=== PATIENT | female | born 1965 | race Two or more races ===

== ENCOUNTER 2017-08-10 11:48 | Emergency (ER) | payer OTHER ==
[~2017-08-10] VITALS: Ht 157.5 cm; Wt 81.6 kg
[2017-08-10 12:11] LABS: BASO % 1 % (0-3); EOS # 0.2 x10^3/uL (0.0-0.7); EOS % 3 % (0-3); HEMATOCRIT 42.7 % (36.0-47.0); HEMOGLOBIN 14.6 g/dL (12.0-15.5); LYMPH # 1.6 x10^3/uL (1.0-4.8); LYMPH % 27 % (24-48); MEAN CORPUSCULAR HEMOGLOBIN 31 pg (25-35); MEAN CORPUSCULAR HGB CONC 34 g/dL (31-37); MEAN CORPUSCULAR VOLUME 90 fL (79-100); MONO # 0.5 x10^3/uL (0.0-1.1); MONO % 8 % (0-9); NEUT # 3.6 x10^3uL (1.8-7.7); NEUT % 61 % (31-73); PLATELET COUNT 147 x10^3/uL (140-400); RED BLOOD COUNT 4.77 x10^6/uL (3.50-5.40); WHITE BLOOD COUNT 5.9 x10^3/uL (4.0-11.0)
--- NOTE | 2017-08-10 12:12 | RAD ---
Indication: Cough Technique: PA and lateral views of the chest Comparison: None Findings: Heart is normal in size. Bilateral prominent peribronchial markings noted without focal consolidation. No pneumothorax or pleural effusion. Visualized bony thorax is within normal limits. Impression: Findings suggestive of either pulmonary vascular congestion or bronchitis.
[2017-08-10 12:19] LABS: CALCIUM 8.9 mg/dL (8.5-10.1); CREATININE 0.5 mg/dL (0.6-1.0); GFR 130.1; POTASSIUM 3.9 mmol/L (3.5-5.1)
[2017-08-10] MEDS ORDERED: FLUT12AE IH (12:45)
--- NOTE | 2017-08-10 12:47 | PHYS DOC ---
Past History Past Medical History: No Pertinent History Past Surgical History: Appendectomy, Tubal ligation Alcohol Use: None Drug Use: None Adult General Chief Complaint Chief Complaint: CHEST PAIN HPI HPI Patient is a 51 year old F who presents with chest pressure that radiates to her left arm over the past week. She describes the symptoms as intermittent. She also has had nasal congestion. She describes the sensation in her left arm as burning and involving all 5 fingers and the entire arm extending to the left side of the neck. She denies any exacerbating or alleviating factors. She has no other associated symptoms. She does have a history of fibromyalgia. She takes no daily medications. She has no family history of medical disease. She is a nonsmoker. Review of Systems Review of Systems Constitutional: Denies fever or chills [] Eyes: Denies change in visual acuity, redness, or eye pain [] HENT: Denies sore throat [] Respiratory: Denies cough or shortness of breath [] Cardiovascular: No additional information not addressed in HPI [] GI: Denies abdominal pain, nausea, vomiting, bloody stools or diarrhea [] : Denies dysuria or hematuria [] Musculoskeletal: Denies back pain or joint pain [] Integument: Denies rash or skin lesions [] Neurologic: Denies headache, focal weakness or sensory changes [] Endocrine: Denies polyuria or polydipsia [] All other systems were reviewed and found to be within normal limits, except as documented in this note. Family History Family History No pertinent family medical history was reported Current Medications Current Medications No current medications Allergies Allergies Allergies Coded Allergies Type Severity Reaction Last Updated Verified Penicillins Allergy Unknown 08/10/17 Yes codeine Allergy Unknown 08/10/17 Yes Physical Exam Physical Exam Constitutional: Well developed, well nourished, no acute distress, non-toxic appearance. [] HENT: Normocephalic, atraumatic, mild nasal mucosa erythema Eyes: EOMI, conjunctiva normal, no discharge. [] Neck: Normal range of motion, no tenderness, supple, no stridor. [] Cardiovascular:Heart rate regular rhythm, Lungs & Thorax: Bilateral breath sounds clear to auscultation [] Abdomen: Bowel sounds normal, soft, no tenderness, no masses, no pulsatile masses. [] Skin: Warm, dry, no erythema, no rash. [] Extremities: No tenderness, no cyanosis, no clubbing, ROM intact, no edema. [] Neurologic: Alert and oriented X 3, normal motor function, normal sensory function, no focal deficits noted. [] Psychologic: Affect normal, judgement normal, mood normal. [] Current Patient Data Vital Signs Vital Signs Date Time Temp Pulse Resp B/P (MAP) Pulse Ox O2 Delivery O2 Flow Rate FiO2 08/10/17 11:51 98.0 84 18 98 Room Air Lab Results Laboratory Tests Test 08/10/17 11:56 White Blood Count 5.9 x10^3/uL (4.0-11.0) Red Blood Count 4.77 x10^6/uL (3.50-5.40) Hemoglobin 14.6 g/dL (12.0-15.5) Hematocrit 42.7 % (36.0-47.0) Mean Corpuscular Volume 90 fL (79-100) Mean Corpuscular Hemoglobin 31 pg (25-35) Mean Corpuscular Hemoglobin Concent 34 g/dL (31-37) Red Cell Distribution Width 13.0 % (11.5-14.5) Platelet Count 147 x10^3/uL (140-400) Neutrophils (%) (Auto) 61 % (31-73) Lymphocytes (%) (Auto) 27 % (24-48) Monocytes (%) (Auto) 8 % (0-9) Eosinophils (%) (Auto) 3 % (0-3) Basophils (%) (Auto) 1 % (0-3) Neutrophils # (Auto) 3.6 x10^3uL (1.8-7.7) Lymphocytes # (Auto) 1.6 x10^3/uL (1.0-4.8) Monocytes # (Auto) 0.5 x10^3/uL (0.0-1.1) Eosinophils # (Auto) 0.2 x10^3/uL (0.0-0.7) Basophils # (Auto) 0.0 x10^3/uL (0.0-0.2) Sodium Level 140 mmol/L (136-145) Potassium Level 3.9 mmol/L (3.5-5.1) Chloride Level 106 mmol/L (98-107) Carbon Dioxide Level 25 mmol/L (21-32) Anion Gap 9 (6-14) Blood Urea Nitrogen 17 mg/dL (7-20) Creatinine 0.5 mg/dL (0.6-1.0) L Estimated GFR (Cockcroft-Gault) 130.1 Glucose Level 117 mg/dL (70-99) H Calcium Level 8.9 mg/dL (8.5-10.1) Troponin I Quantitative < 0.017 ng/mL (0-0.055) EKG EKG Normal sinus rhythm Radiology/Procedures Radiology/Procedures Chest x-ray Impressions: No acute disease Course & Med Decision Making Course & Med Decision Making Pertinent Labs and Imaging studies reviewed. (See chart for details) [] Dragon Disclaimer Dragon Disclaimer This electronic medical record was generated, in whole or in part, using a voice recognition dictation system. Departure Departure: Impression: Primary Impression: Pleuritis Disposition: 01 HOME, SELF-CARE Condition: STABLE Referrals: DAISY VAUGHN (PCP) Patient Instructions: Pleurisy Additional Instructions: Jeannie was seen in the ED for chest pain. No emergency medical condition was found. She did have normal labs, EKG and imaging. She was found have symptoms consistent with pleuritis and/or bronchitis. She was encouraged to use Aleve as needed for pain and was also given a prescription for an inhaled steroid for her cough. She is advised follow-up with her primary care doctor as needed for further management. She was also advised return to the emergency room if she develops new or worsening symptoms. Scripts Fluticasone Propionate (FLOVENT 110MCG HFA) 12 Gm Aer.w.adap 2 PUFF IH BID for 7 Days, #1 INHALER 2 Refills Prov: POOJA CERDA MD 08/10/17 POOJA CERDA MD Aug 10, 2017 12:47
[2017-08-10 12:50] VITALS: BP 143/84
--- NOTE | 2017-08-10 13:40 | EKG ---
[address] [address] Test Date: 2017-08-10 Test Time: 11:54:03 Pat Name: TRINITY DENISE Department: Room: Gender: F Network Security Administrator: CLARE : [id number] Requested By: POOJA CERDA Order Number: [id number] Reading MD: Measurements Intervals Rogers Rate: 76 P: 45 MI: 152 QRS: 19 QRSD: 84 T: 23 QT: 382 QTc: 434 Interpretive Statements SINUS RHYTHM NORMAL ECG RI6.01 No previous ECG available for comparison
== END 2017-08-10 12:55 | disposition home or self-care (01) ==
LOC: ER 11:48
DX: R09.1 Pleurisy (principal); M79.7 Fibromyalgia; Z88.0 Allergy status to penicillin; Z88.5 Allergy status to narcotic agent
CPT/HCPCS: 36415; 71046; 80048; 84484; 85025; 93005; 99285-25